=== PATIENT | male | born 2005 | race African-American/Black ===

== ENCOUNTER → 2024-02-02 | Outpatient (CLI) | LOC: M SOG 14:28 | PROVIDERS: ATTEND Physician Assistant | DX: M25.562 Pain in left knee (principal) ==

== ENCOUNTER → 2024-02-09 | Outpatient (CLI) | payer OTHER | LOC: M PLAIMG 07:47 | PROVIDERS: ATTEND Physician Assistant | DX: M25.362 Other instability, left knee (principal); S83.282A Other tear of lateral meniscus, current injury, left knee, initial encounter; Y93.9 Activity, unspecified; Y92.9 Unspecified place or not applicable ==